=== PATIENT | male | born 1985 | race Caucasian/White ===

== ENCOUNTER 2016-08-25 14:55 | Emergency (ER) | payer OTHER ==
--- NOTE | 2016-08-25 16:40 | DIAGNOSTIC IMAGING REPORT ---
PROCEDURE: XR ABD SERIES 2V ABD/1V CHEST INDICATION: ABDOMINAL PAIN TECHNIQUE: AP supine and upright views with PA view chest. COMPARISON: None. FINDINGS: ABDOMEN: Bowel pattern is normal. No evidence of free air. Soft tissues and osseous structures are normal. Three screws across the right SI joint. CHEST: Lungs are clear. Heart and mediastinum are normal. Thorax is normal. IMPRESSION: 1. Negative acute abdomen series.
--- NOTE | 2016-08-25 20:06 | ED ORDER SUMMARY ---
..... Patient: SARAY CAO CW OrderSheet [facility] VisitID: [id number] [address] [place] [address] 30y, M Registration Date/Time: 08/25/2016 ORDER SHEET Weight: 86.1 kg (stated) Allergies: Pertussis Vaccines GENERAL ORDERS: CBC w Diff Urgent (15:12 08/25/2016 EKoroleva P.A.-C) (Ack 15:23 OHernandez) (16:07 Tito R.N.) CMP Urgent (15:12 08/25/2016 EKoroleva P.A.-C) (Ack 15:23 OHernandez) (16:07 Tito R.N.) UA-Culture if indicated Urgent (15:12 08/25/2016 EKoroleva P.A.-C) (Ack 15:23 OHernandez) (19:29 AMcQuoid ER Tech1) Lipase Urgent (15:12 08/25/2016 EKoroleva P.A.-C) (Ack 15:23 OHernandez) (16:07 Tito R.N.) Urine Drug Screen Urgent (15:47 08/25/2016 EKoroleva P.A.-C) (Ack 15:50 OHernandez) (19:29 AMcQuoid ER Tech1) Rapid Influenza Screen (Nasal Pharyngeal) (n) Urgent (15:47 08/25/2016 EKoroleva P.A.-C) (Ack 15:50 OHernandez) (18:39 Tito R.N.) Abd Series 2V Abd/1V Chest Urgent (16:00 08/25/2016 EKoroleva P.A.-C) (Ack 16:19 OHernandez) (16:45 MCampbell) PCT (Procalcitonin) Urgent (16:00 08/25/2016 EKoroleva P.A.-C) (16:08 Tito R.N.) Lactate, Serum Urgent (16:00 08/25/2016 EKoroleva P.A.-C) (Ack 16:19 OHernandez) (17:00 Tito R.N.) MEDICATION ORDERS: Phenergan IV 12.5 mg (HIGH ALERT MEDICATION, NOW) (15:47 08/25/2016 EKoroleva P.A.-C) (Ack 16:12 Tito R.N.) (17:01 Tito R.N.) IV FLUIDS: IV NS : initial bolus 1000 mL (1000 mL/hr), then 1000 mL/hr for X1 (NOW); Twin (15:24 08/25/2016 EKoroleva P.A.-C) (Ack 15:30 Tito R.N.) (16:09 Tito R.N.) Reglan IV 10 mg (NOW) (15:24 08/25/2016 EKoroleva P.A.-C) (Ack 15:30 Tito R.N.) (16:10 Tito R.N.) Zofran IV 8 mg (NOW) (15:24 08/25/2016 EKoroleva P.A.-C) (Ack 15:30 Tito R.N.) (16:09 Tito R.N.) Ativan IV 1 mg (HIGH ALERT MEDICATION, NOW) (15:50 08/25/2016 EKoroleva P.A.-C) (Ack 16:13 Tito R.N.) (19:46 Liudmila R.N.) ORDER SHEET NOTES: [Electronically signed by Navya Trejo PAdinaAAdina-C (21:07 08/25/2016)] [Electronically signed by Tanya Warren R.N. (07:09 08/29/2016)] [Electronically locked/signed by Tanya Warren R.N. (07:09 08/29/2016)]
--- NOTE | 2016-08-25 20:06 | ED ORDER SUMMARY ---
..... Patient: SARAY CAO CW OrderSheet [facility] VisitID: [id number] [address] [place] [address] 30y, M Registration Date/Time: 08/25/2016 ORDER SHEET Weight: 86.1 kg (stated) Allergies: Pertussis Vaccines GENERAL ORDERS: CBC w Diff Urgent (15:12 08/25/2016 EKoroleva P.A.-C) (Ack 15:23 OHernandez) (16:07 Tito R.N.) CMP Urgent (15:12 08/25/2016 EKoroleva P.A.-C) (Ack 15:23 OHernandez) (16:07 Tito R.N.) UA-Culture if indicated Urgent (15:12 08/25/2016 EKoroleva P.A.-C) (Ack 15:23 OHernandez) (19:29 AMcQuoid ER Tech1) Lipase Urgent (15:12 08/25/2016 EKoroleva P.A.-C) (Ack 15:23 OHernandez) (16:07 Tito R.N.) Urine Drug Screen Urgent (15:47 08/25/2016 EKoroleva P.A.-C) (Ack 15:50 OHernandez) (19:29 AMcQuoid ER Tech1) Rapid Influenza Screen (Nasal Pharyngeal) (n) Urgent (15:47 08/25/2016 EKoroleva P.A.-C) (Ack 15:50 OHernandez) (18:39 Tito R.N.) Abd Series 2V Abd/1V Chest Urgent (16:00 08/25/2016 EKoroleva P.A.-C) (Ack 16:19 OHernandez) (16:45 MCampbell) PCT (Procalcitonin) Urgent (16:00 08/25/2016 EKoroleva P.A.-C) (16:08 Tito R.N.) Lactate, Serum Urgent (16:00 08/25/2016 EKoroleva P.A.-C) (Ack 16:19 OHernandez) (17:00 Tito R.N.) MEDICATION ORDERS: Phenergan IV 12.5 mg (HIGH ALERT MEDICATION, NOW) (15:47 08/25/2016 EKoroleva P.A.-C) (Ack 16:12 Tito R.N.) (17:01 Tito R.N.) IV FLUIDS: IV NS : initial bolus 1000 mL (1000 mL/hr), then 1000 mL/hr for X1 (NOW); Twin (15:24 08/25/2016 EKoroleva P.A.-C) (Ack 15:30 Tito R.N.) (16:09 Tito R.N.) Reglan IV 10 mg (NOW) (15:24 08/25/2016 EKoroleva P.A.-C) (Ack 15:30 Tito R.N.) (16:10 Tito R.N.) Zofran IV 8 mg (NOW) (15:24 08/25/2016 EKoroleva P.A.-C) (Ack 15:30 Tito R.N.) (16:09 Tito R.N.) Ativan IV 1 mg (HIGH ALERT MEDICATION, NOW) (15:50 08/25/2016 EKoroleva P.A.-C) (Ack 16:13 Tito R.N.) (19:46 Liudmila R.N.) ORDER SHEET NOTES: [Electronically signed by Navya Trejo PAdinaAAdina-C (21:07 08/25/2016)] [Electronically signed by Tanya Warren R.N. (07:09 08/29/2016)] [Electronically locked/signed by Tanya Warren R.N. (07:09 08/29/2016)]
--- NOTE | 2016-08-25 20:06 | ED CLINICAL REPORT ---
Clinical Report - Physicians/Mid Levels [facility] [address] [place] [address] 08/25/2016 14:57 Patient: SARAY CAO Time Seen: 15:47 Aug 25 2016. Arrived- By private vehicle. Historian- patient. HISTORY OF PRESENT ILLNESS Chief Complaint: VOMITING. This started yesterday and is still present. No recent travel. He has had nausea and vomiting. No diarrhea or flank pain. (patient went ongoing illness for months. Started emesisworsening last night, with fevers and chills. Denies any alcohol significant use or any IV drug use. Patient has been on methadone for a few years. Recently seen his doctor, had an abnormal cortisol level pm. This is a reoccurring problem. Patient reports using street drugs, including benzos and methadone. History of similar symptoms, was previously also has a [facility] the last 6 months for an extensive workup.). REVIEW OF SYSTEMS No fever, difficulty with urination, dark urine or cough. He has had muscle aches. All systems otherwise negative, except as recorded above. SOCIAL HISTORY Smoker- current status unknown. History of drug use benzo/ methadone: marijuana. No alcohol use. ADDITIONAL NOTES The nursing notes have been reviewed. PHYSICAL EXAM Vital Signs: 08/25/2016 15:04 BP: 107/71. HR: 76. RR: 20. O2 saturation: 98%. Temp: 97.7 F. Pain level now: 5/10. Appearance: Alert. ENT: Nose normal. Pharynx normal. Neck: Normal inspection. Neck supple. CVS: Normal heart rate and rhythm. Heart sounds normal. Rhythm normal. Respiratory: No respiratory distress. Abdomen: Soft. No mass. The bowel sounds are not abnormal. Back: Normal inspection. No CVA tenderness. Skin: Normal skin color. Neuro: Oriented X 3. LABS, X-RAYS, AND EKG KUB: (IMPRESSION: 1. Negative acute abdomen series. Electronically Final signed by:Rubio Guerrier MD 08/25/2016 4:41:11 PM). Laboratory Tests: CBC w Diff: (MAURIZIO: 08/25/2016 15:20) ( [facility] 08/25/2016 15:42) Final results Test Result Flag Units (Reference) WHITE BLOOD COUNT 11.2 K/uL (4.5-11.5) RED BLOOD COUNT 5.29 M/uL (4.50-5.90) HEMOGLOBIN 15.9 gm/dL (13.5-17.5) HEMATOCRIT 47.8 % (41.0-53.0) MEAN CELL VOLUME 91 fL (80-100) MEAN CORPUSCULAR HGB 30 pg (26-34) MEAN CORPUSCULAR HGB CONC 33 g/dL (31-37) RED CELL DISTRIBUTION WIDTH 13.8 % (11.6-14.8) PLATELET COUNT 288 K/uL (150-400) NEUTROPHIL % 89.3 H % (50-75) LYMPH % 7.5 L % (25-40) MONO % 3.1 % (3-14) EOSINOPHIL % 0 % (0-4) BASOPHIL % 0.1 % (0-2) Lactate, Serum: (MAURIZIO: 08/25/2016 16:46) ( [facility] 08/25/2016 17:27) Final results Test Result Flag Units (Reference) LACTIC ACID 1.4 mmol/L (0.4-2.0) [id number]: (MAURIZIO: 08/25/2016 15:20) ( [facility] 08/25/2016 16:33) Final results Test Result Flag Units (Reference) PROCALCITONIN <0.5 ng/mL (0-0.5) PCT Concentration: Interpretation : Risk/option for action PCT <=0.5 ng/mL : Systemic : Low risk forinfection(sepsis): progression to severeis not likely. : systemic infection.Local bacterial : CAUTION-PCT levelsinfection is : below 0.5 ng/mL do notpossible. : exclude an infection,because localizedinfections (withoutsystemic signs) may beassociated with suchlow levels. If PCT ismeasured very earlyafter a bacterialchallenge (usually <6hours), these valuesmay still be low. Inthis case PCT shouldbe re-assessed 6-24hours later. PCT >0.5 and : Systemic infection: Moderate risk for<= 2 ng/mL : (sepsis) is : progression to severepossible, but : systemic infection.other conditions : The patient should beare known to : closely monitoredelevate PCT. : both clinically andby re-assessing PCTwithin 6-24 hours. PCT > 2 ng/mL : Systemic infection: High risk for(sepsis) is likely: progression to severeunless other : systemic infection.causes are known. : PCT >= 10 ng/mL : Important systemic: High likelihood ofinflammatory : severe sepsis orresponse, almost : septic shock.exclusively due to:severe bacterial :sepsis or septic :shock. : CMP: (MAURIZIO: 08/25/2016 15:20) ( MsgRcvd 08/25/2016 15:51) Final results Test Result Flag Units (Reference) GLUCOSE 122 H mg/dL (70-110) BUN 14 mg/dL (7-18) CREATININE 1.0 mg/dL (0.6-1.3) Estimated GFR >60 mL/min Estimated GFR- >60 mL/min Note: Persistent reduction over 3 months in eGFR<60 mL/min/1.73 m2 defines CKD. Patients with eGFR values>=60 mL/min/1.73 m2 may also have CKD if evidence ofpersistent proteinuria. Additional information may be foundat www.kidney.org. SODIUM 140 mmol/L (136-145) POTASSIUM 3.4 L mmol/L (3.5-5.1) CHLORIDE 99 mmol/L (98-107) CARBON DIOXIDE 27 mmol/L (21-32) CALCIUM 9.8 mg/dL (8.5-10.1) TOTAL PROTEIN 8.7 H g/dL (6.4-8.2) ALBUMIN 4.4 g/dL (3.3-5.0) BILIRUBIN, TOTAL 0.7 mg/dL (0.0-1.0) ALKALINE PHOSPHATASE 96 U/L (46-116) AST (SGOT) 24 U/L (15-37) ALT (SGPT) 37 U/L (12-78) LIPASE 149 U/L (73-393) Rapid Influenza Screen: (MAURIZIO: 08/25/2016 17:05) ( MsgRcvd 08/25/2016 17:34) Final results SPECIMEN DESCRIPTION: N Test Result Flag Units (Reference) RAPID INFLUENZA SCREEN DATE: 08/25/16 INFLUENZA A: NEGATIVE SCREEN FOR INFLUENZA A INFLUENZA B: NEGATIVE SCREEN FOR INFLUENZA B RAPID INFLUENZA SCREEN NEGATIVE FOR "A" "B". . PROGRESS AND PROCEDURES Course of Care: Patient limited records from [facility] from January, where he had nausea vomiting diarrhea abdominal pain, hallucinations, possible seizures reported by friends, and at that time was thought to be coming possibly benzo. CT head at the time was un-reamrkable. Pt in addition had an LP also neg. Labs from 08/23: random cortisol pm drawn / collected at 08/22/16 16:20 pm was 30.4. Otherwise UA, cbc unremarkable. Long discussion with patient, he uses two street drugs. Uses methadone for a few years, reports rather consistently. Uses benzo, reports a few strips of the "C", and has not used the benzo over the last 48 hours. Extensive discussion with the patient, as well as his mom, and reverted to his illicit drug use, the likely inconsistency of such, although likely unknown quantities or doses of such, or validity of substance. Patient truly has GI initiated with emesis, he does require follow-up outpatient, he was urged for such. 08/25/2016 18:30 BP: 127/68. HR: 69. RR: 22. O2 saturation: 94%. 08/25/2016 17:25 BP: 117/89. HR: 78. RR: 25. O2 saturation: 97%. 08/25/2016 17:00 BP: 127/81. HR: 76. RR: 20. O2 saturation: 98%. 08/25/2016 16:00 BP: 112/77. HR: 98. RR: 36. O2 saturation: 95%. Patient is stable. Physical exam findings are improved. Symptoms better. Patient/family counseled. Disposition: Discharged. CLINICAL IMPRESSION Vomiting with nausea. INSTRUCTIONS Drink plenty of fluids. (your DR wants to have MORNING LAB testing please follow up with him tomorrow). Prescription Medications: Zofran (orally disintegrating tablets) 4 mg: take 1-2 orally every 6 hours for 3 days as needed for nausea. Dispense fifteen (15). No refill. Substitution is permissible. Reglan 10 mg tablets: take 1 orally every 8 hours for 3 days as needed for nausea or vomiting. Dispense ten (10). No refills. Substitution is permissible. Follow-up: Follow up with your doctor tomorrow. (Electronically signed by Navya Trejo P.A.-C 08/25/2016 21:07)
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
--- NOTE | 2016-08-29 15:09 | ED DISCHARGE INSTRUCTIONS ---
Patient: SARAY CAO General Instructions [facility] VisitID: [id number] [place] [address] 30y, M Registration Date/Time: 08/25/2016 Vomiting with nausea. INSTRUCTIONS Drink plenty of fluids. (your DR wants to have MORNING LAB testing please follow up with him tomorrow). Prescription Medications: Zofran (orally disintegrating tablets) 4 mg: take 1-2 orally every 6 hours for 3 days as needed for nausea. Dispense fifteen (15). No refill. Substitution is permissible. Reglan 10 mg tablets: take 1 orally every 8 hours for 3 days as needed for nausea or vomiting. Dispense ten (10). No refills. Substitution is permissible. Follow-up: Follow up with your doctor tomorrow. ADDITIONAL INFORMATION Vomiting [6Yr-Adult] Vomiting is a common symptom that may be due to different causes. These include gastroenteritis ("stomach flu"), food poisoning and gastritis. There are other more serious causes of vomiting which may be hard to diagnose early in the illness. Therefore, it is important to watch for the warning signs listed below. The main danger from repeated vomiting is dehydration. This is due to excess loss of water and minerals from the body. When this occurs, body fluids must be replaced. Home Care: If symptoms are severe, rest at home for the next 24 hours. You may use acetaminophen (Tylenol) or ibuprofen (Motrin, Advil) to control fever, unless another medicine was prescribed. [NOTE : If you have chronic liver or kidney disease or ever had a stomach ulcer or GI bleeding, talk with your doctor before using these medicines.] (Aspirin should never be used in anyone under 18 years of age who is ill with a fever. It may cause severe liver damage.) Avoid tobacco and alcohol use, which may worsen your symptoms. If medicines for vomiting were prescribed, take as directed. Once vomiting stops, then follow these guidelines: During The First 12-24 Hours follow the diet below: FRUIT JUICES: Apple, grape juice, clear fruit drinks, and electrolyte replacement drinks. BEVERAGES: Soft drinks without caffeine; mineral water (plain or flavored), decaffeinated tea and coffee. SOUPS: Clear broth, consomm and bouillon DESSERTS: Plain gelatin, popsicles and fruit juice bars. As you feel better, you may add 6-8 ounces of yogurt per day. During The Next 24 Hours you may add the following to the above: Hot cereal, plain toast, bread, rolls, crackers Plain noodles, rice, mashed potatoes, chicken noodle or rice soup Unsweetened canned fruit (avoid pineapple), bananas Limit caffeine and chocolate. No spices or seasonings except salt. During The Next 24 Hours Gradually resume a normal diet, as you feel better and your symptoms lessen. Follow Up with your doctor as advised if you are not improving over the next 2-3 days. Get Prompt Medical Attention if any of the following occur: Constant right-sided lower abdominal pain or increasing general abdominal pain Continued vomiting (unable to keep liquids down) for 24 hours Frequent diarrhea (more than 5 times a day); blood (red or black color) or mucus in diarrhea Reduced urine output or extreme thirst Weakness, dizziness or fainting Unusually drowsy or confused Fever of 100.4F (38C) oral or higher, not better with fever medication Yellow color of the eyes or skin [place] Diet A bland diet is used for patients with an upset stomach. It consists of foods that are mild and easy to digest. It is better to eat small frequent meals rather than three large meals a day. BEVERAGES OK: Fruit juices, non-caffeinated teas and coffee, non-carbonated hernandez AVOID: Carbonated beverage, caffeinated tea and coffee, all alcoholic beverages BREAD OK: Refined white, wheat or rye bread, wendie or soda crackers, [place] toast, plain rolls, bagels AVOID: Whole-grain bread CEREAL OK: Refined cereals: cooked or ready to eat AVOID: Whole grain cereals and granola, or those containing bran, seeds or nuts DESSERTS OK: Peanut butter and all others except those to "avoid" AVOID: Chocolate, cocoa, coconut, popcorn, nuts, seeds, jam, marmalade FRUITS OK: Canned, cooked, frozen or fresh fruits without seeds or tough skin AVOID: Olives, skin and seeds of fruit MEATS OK: All fresh or preserved meat, fish and fowl AVOID: Any that are prepared with those spices to "avoid" CHEESE & EGGS OK: Eggs, cottage cheese, cream cheese, other cheeses AVOID: All cheeses made with those spices to "avoid" POTATOES & PASTA OK: Potato, rice, macaroni, noodles, spaghetti AVOID: None SOUPS OK: All soups without heavy seasoning AVOID: Soups made with those spices to "avoid" VEGETABLES OK: Canned, cooked, fresh or frozen mildly flavored vegetables without seeds, skins or coarse fiber AVOID: Vegetables prepared with those spices to "avoid"; skin and seeds of vegetables and those with coarse fiber SPICES OK: Salt, lemon and [place] juice, vinegar, all extracts, martha, cinnamon, thyme, mace, allspice, paprika AVOID: [place] powder, cloves, pepper, seed spices, garlic, gravy pickles, highly seasoned salad dressings Clear Liquid Diet Clear liquids are any liquid that you can see through as well as those that are very easy to digest. This is used while the body is recovering from irritation or infection of the stomach or intestinal tract. It may also be used before special procedures or surgery. This diet is to be used no more than three days. You may include the following items. Adults Adults should drink a total of 23 quarts of liquid per day. It may be easier to drink small frequent servings rather than a few large ones. Liquids can include: Fruit juices.Strained orange juice or lemonade (no pulp), apple, grape and cranberry juice, clear fruit drinks, sports drinks Beverages.Sport drinks, sodas, mineral water (plain or flavored), tea, black coffee, liquid gelatin (add twice the recommended amount of water) Soups.Clear broth, consomm, bouillon Desserts.Plain gelatin, popsicles, fruit juice bars Children Over 2 years old The following liquids are acceptable for children over age 2: Fruit juices.Strained orange juice or lemonade (no pulp), apple, grape and cranberry juice, clear fruit drinks Beverages. Sports drinks, sodas, mineral water (plain or flavored), tea, liquid gelatin (add twice the recommended amount of water) Soups. Clear broth, consomm, bouillon Desserts. Plain gelatin, popsicles, fruit juice bars Children under 2 years old Oral rehydration fluids such are available at drug stores and most grocery stores without a prescription. Ondansetron Hydrochloride Oral tablet What is this medicine? ONDANSETRON (on JOELLE se fox) is used to treat nausea and vomiting caused by chemotherapy. It is also used to prevent or treat nausea and vomiting after surgery. How should I use this medicine? Take this medicine by mouth with a glass of water. Follow the directions on your prescription label. Take your doses at regular intervals. Do not take your medicine more often than directed. Talk to your pipe recovery specialist regarding the use of this medicine in children. Special care may be needed. What side effects may I notice from receiving this medicine? Side effects that you should report to your doctor or health urgent care technician as soon as possible: allergic reactions like skin rash, itching or hives, swelling of the face, lips or tongue breathing problems dizziness fast or irregular heartbeat feeling faint or lightheaded, falls fever and chills swelling of the hands or feet tightness in the chest Side effects that usually do not require medical attention (report to your doctor or health urgent care technician if they continue or are bothersome): constipation or diarrhea headache What may interact with this medicine? Do not take this medicine with any of the following medications: -apomorphine -cisapride -dofetilide -dronedarone -pimozide -thioridazine -ziprasidone This medicine may also interact with the following medications: -carbamazepine -phenytoin -rifampicin -tramadol -other medicines that prolong the QT interval (cause an abnormal heart rhythm) What if I miss a dose? If you miss a dose, take it as soon as you can. If it is almost time for your next dose, take only that dose. Do not take double or extra doses. Where should I keep my medicine? Keep out of the reach of children. Store between 2 and 30 degrees C (36 and 86 degrees F). Throw away any unused medicine after the expiration date. What should I tell my health care provider before I take this medicine? They need to know if you have any of these conditions: heart disease history of irregular heartbeat liver disease low levels of magnesium or potassium in the blood an unusual or allergic reaction to ondansetron, granisetron, other medicines, foods, dyes, or preservatives or trying to get breast-feeding What should I watch for while using this medicine? Check with your doctor or health urgent care technician right away if you have any sign of an allergic reaction. You have been given the following additional information: Vomiting (6Y-Adult) Diet, [place] (Adult) Diet, Clear Liquid Ondansetron Hydrochloride Oral tablet (Electronically signed by Navya Trejo P.A.-C 08/25/2016 21:07)
--- NOTE | 2016-08-29 15:10 | ED MED RECONCILIATION SUMMARY ---
Patient: SARAY CAO Medication Reconciliation Report [facility] VisitID: [id number] [address] [place] [address] 30y, M Registration Date/Time: 08/25/2016 Weight: 86.1 kg Height/Length: 73 in. BMI: 25.0 ALLERGIES: Pertussis Vaccines The patient's Home Medications are listed below: THE FOLLOWING MEDICATIONS NEED TO BE RECONCILED: Methadone HCl Oral SEROquel Oral Xanax Oral The source(s) of the original Home Medication information: patient The following Medications were given to the patient in the Emergency Department: IV NS IV Fluids bolus 0, then 1000 mL/hr, administered: 08/25/2016 3:25:00 PM Zofran [IVP] IVP 8 mg, administered: 08/25/2016 3:44:00 PM Reglan [IVP] IVP 10 mg, administered: 08/25/2016 3:45:00 PM PHENERGAN [IVP] IVP 12.5 mg, administered: 08/25/2016 4:30:00 PM Ativan [IVP] IVP 1 mg, administered: 08/25/2016 7:36:00 PM The following Medications were prescribed to the patient: Zofran (orally disintegrating tablets) 4 mg: take 1-2 orally every 6 hours for 3 days as needed for nausea. Dispense fifteen (15). No refill. Substitution is permissible. -- Navya Trejo, P.A.-C Reglan 10 mg tablets: take 1 orally every 8 hours for 3 days as needed for nausea or vomiting. Dispense ten (10). No refills. Substitution is permissible. -- Navya Trejo, P.A.-C
--- NOTE | 2016-08-29 15:10 | ED MAR SUMMARY ---
..... Medication Administration Record [facility] [address] [place] [address] Patient: SARAY CAO Visit ID: [id number] 30y, M Weight: 86.1 kg Height/Length: 73 in BMI: 25 ALLERGIES: Pertussis Vaccines Start 15:25 08/25/2016 Tanya Warren R.N., Stop 20:00 08/25/2016 Ancelmo Brothers R.N. Medication Administered: IV NS (SALINE), Dose: IV Fluids over 1 hour(s), Rate: 1000 mL/hr, Dispensed: 1000 mL bag, Site: #1 right forearm. Medication Ordered: IV NS : initial bolus 1000 mL (1000 mL/hr), then 1000 mL/hr for X1 (NOW); Twin. Given 15:44 08/25/2016 Tanya Warren R.N. Medication Administered: ZOFRAN [IVP] (ONDANSETRON HCL), Dose: 8 mg IVP over 4 minute(s), Site: #1 right forearm. Medication Ordered: Zofran IV 8 mg (NOW). Given 15:45 08/25/2016 Tanya Warren R.N. Medication Administered: REGLAN [IVP] (METOCLOPRAMIDE HCL), Dose: 10 mg IVP over 4 minute(s), Site: #1 right forearm. Medication Ordered: Reglan IV 10 mg (NOW). Given 16:30 08/25/2016 Tanya Warren R.N. Medication Administered: PHENERGAN [IVP] (PROMETHAZINE HCL), Dose: 12.5 mg IVP over 2 minute(s), Site: #1 right forearm. Medication Ordered: Phenergan IV 12.5 mg (HIGH ALERT MEDICATION, NOW). Given 19:36 08/25/2016 Ancelmo Brothers R.N. Medication Administered: ATIVAN [IVP] (LORAZEPAM), Dose: 1 mg IVP over 2 minute(s), Site: #1 right forearm. Medication Ordered: Ativan IV 1 mg (HIGH ALERT MEDICATION, NOW).
--- NOTE | 2016-08-29 15:10 | ED MAR SUMMARY ---
..... Medication Administration Record [facility] [address] [place] [address] Patient: SARAY CAO Visit ID: [id number] 30y, M Weight: 86.1 kg Height/Length: 73 in BMI: 25 ALLERGIES: Pertussis Vaccines Start 15:25 08/25/2016 Tanya Warren R.N., Stop 20:00 08/25/2016 Ancelmo Brothers R.N. Medication Administered: IV NS (SALINE), Dose: IV Fluids over 1 hour(s), Rate: 1000 mL/hr, Dispensed: 1000 mL bag, Site: #1 right forearm. Medication Ordered: IV NS : initial bolus 1000 mL (1000 mL/hr), then 1000 mL/hr for X1 (NOW); Twin. Given 15:44 08/25/2016 Tanay Warren R.N. Medication Administered: ZOFRAN [IVP] (ONDANSETRON HCL), Dose: 8 mg IVP over 4 minute(s), Site: #1 right forearm. Medication Ordered: Zofran IV 8 mg (NOW). Given 15:45 08/25/2016 Tanya Warren R.N. Medication Administered: REGLAN [IVP] (METOCLOPRAMIDE HCL), Dose: 10 mg IVP over 4 minute(s), Site: #1 right forearm. Medication Ordered: Reglan IV 10 mg (NOW). Given 16:30 08/25/2016 Tanya Warren R.N. Medication Administered: PHENERGAN [IVP] (PROMETHAZINE HCL), Dose: 12.5 mg IVP over 2 minute(s), Site: #1 right forearm. Medication Ordered: Phenergan IV 12.5 mg (HIGH ALERT MEDICATION, NOW). Given 19:36 08/25/2016 Ancelmo Brothers R.N. Medication Administered: ATIVAN [IVP] (LORAZEPAM), Dose: 1 mg IVP over 2 minute(s), Site: #1 right forearm. Medication Ordered: Ativan IV 1 mg (HIGH ALERT MEDICATION, NOW).
--- NOTE | 2016-08-29 15:10 | ED MED RECONCILIATION SUMMARY ---
Patient: SARAY CAO Medication Reconciliation Report [facility] VisitID: [id number] [address] [place] [address] 30y, M Registration Date/Time: 08/25/2016 Weight: 86.1 kg Height/Length: 73 in. BMI: 25.0 ALLERGIES: Pertussis Vaccines The patient's Home Medications are listed below: THE FOLLOWING MEDICATIONS NEED TO BE RECONCILED: Methadone HCl Oral SEROquel Oral Xanax Oral The source(s) of the original Home Medication information: patient The following Medications were given to the patient in the Emergency Department: IV NS IV Fluids bolus 0, then 1000 mL/hr, administered: 08/25/2016 3:25:00 PM Zofran [IVP] IVP 8 mg, administered: 08/25/2016 3:44:00 PM Reglan [IVP] IVP 10 mg, administered: 08/25/2016 3:45:00 PM PHENERGAN [IVP] IVP 12.5 mg, administered: 08/25/2016 4:30:00 PM Ativan [IVP] IVP 1 mg, administered: 08/25/2016 7:36:00 PM The following Medications were prescribed to the patient: Zofran (orally disintegrating tablets) 4 mg: take 1-2 orally every 6 hours for 3 days as needed for nausea. Dispense fifteen (15). No refill. Substitution is permissible. -- Navya Trejo, P.A.-C Reglan 10 mg tablets: take 1 orally every 8 hours for 3 days as needed for nausea or vomiting. Dispense ten (10). No refills. Substitution is permissible. -- Navya Trejo, P.A.-C
== END 2016-08-25 20:15 | disposition home or self-care (01) ==
LOC: ED SRH 14:55
DX: R11.2 Nausea with vomiting, unspecified (principal); F17.219 Nicotine dependence, cigarettes, with unspecified nicotine-induced disorders; Z88.7 Allergy status to serum and vaccine
CPT/HCPCS: 90004; 90100; 91400; 92031; 92235; 92760; 92761; 92762; 92763; 92764; 92765; 92766; 92767; 93004; 95059